=== PATIENT | male | born 1960 | race African-American/Black ===

== ENCOUNTER 2023-09-15 11:09 | Emergency (ER) | payer OTHER ==
[2023-09-15 11:19] VITALS: BP 161/107; PULSE 87; RESP 18; TEMP 98; BMI 28.1
== END 2023-09-15 13:00 | disposition home or self-care (01) ==
LOC: JER 11:09
DX: F10.929 Alcohol use, unspecified with intoxication, unspecified (principal); Y90.9 Presence of alcohol in blood, level not specified
CPT/HCPCS: 99282-25

== ENCOUNTER 2023-09-15 15:08 | Inpatient (IN) | payer OTHER ==
[2023-09-15 17:15] VITALS: BMI 29.7
[2023-09-15] MEDS ORDERED: P-EPHED 60MG/TRIPROLIDI 2.5MG TABLET PO PRN (17:42)
[2023-09-15] MEDS ORDERED: IBUPROFEN 600 MG TABLET (FP) PO PRN (17:42)
[2023-09-15] MEDS ORDERED: guaiFENesin 600 MG TABLET.ER (FP) PO PRN (17:42)
[2023-09-15] MEDS ORDERED: BENZONATATE 200 MG CAPSULE PO PRN (17:42)
[2023-09-15] MEDS ORDERED: ONDANSETRON *ODT* 4 MG TABLET SL PRN (17:42)
[2023-09-15] MEDS ORDERED: DICYCLOMINE HCL 10 MG CAPSULE PO PRN (17:42)
[2023-09-15] MEDS ORDERED: POLYETHYLENE GLYCOL (HEALTHYLAX) 3350 17 GM PACKET PO PRN (17:42)
[2023-09-15] MEDS ORDERED: IBUPROFEN 400 MG TABLET (FP) PO PRN (17:42)
[2023-09-15] MEDS ORDERED: MAG HYDROX/AL HYDROX/SIMETH 30 ML UNIT-DOSE CUP PO PRN (17:42)
[2023-09-15] MEDS ORDERED: LOPERAMIDE HCL 2 MG CAPSULE PO PRN (17:42)
[2023-09-15] MEDS ORDERED: BENZOCAINE/MENTHOL (CHLORASEPTIC ) LOZENGE MM PRN (17:42)
[2023-09-15] MEDS ORDERED: MAGNESIUM HYDROX 2400MG/30ML ORAL SUSPENSION 30 ML CUP PO PRN (17:42)
[2023-09-15] MEDS ORDERED: BISMUTH SUBSALICYLATE 524 MG/30 ML PO PRN (17:42)
[2023-09-15] MEDS ORDERED: ACETAMINOPHEN 325 MG TABLET (FP) PO PRN (17:42)
[2023-09-15] MEDS ORDERED: cloNIDine HCL 0.1 MG TABLET PO PRN (19:04)
[2023-09-15] MEDS ORDERED: cloNIDine HCL 0.1 MG TABLET ONE (19:22)
[2023-09-15] MEDS: MELATONIN 5 MG TABLETS PO SCH (22:22)
[2023-09-15] MEDS: THIAMINE HCL 100 MG TABLET (FP) PO SCH (22:22)
[2023-09-15] MEDS: hydrOXYzine PAMOATE 25 MG CAPSULE (FP) PO PRN (22:22)
[2023-09-16] MEDS: PRENATAL VITAMINS W/ FOLIC ACID TABLET (FP) PO SCH (10:25)
[2023-09-16] MEDS: hydrOXYzine PAMOATE 25 MG CAPSULE (FP) PO PRN ×2 (10:28→22:17)
[2023-09-16 12:28] LABS: HEMATOCRIT 41.6 % (35.4-49); HEMOGLOBIN 13.6 GM/dL (11.7-16.9); MCH 31.3 pg (25.7-33.7); MCHC 32.7 g/dl (32.0-35.9); MEAN CELL VOLUME 95.9 fl (80-96); MEAN PLT VOLUME 9.2 fl (7.5-11.1); PLATELET COUNT 163 10^3/uL (134-434); RBC 4.34 M/mm3 (4.00-5.60); RDW 14.8 % (11.9-15.9); WHITE BLOOD COUNT 3.2 K/mm3 (4.0-10.0)
[2023-09-16 12:33] LABS: CHLORIDE 101 mmol/L (98-107); POTASSIUM 3.9 mmol/L (3.5-5.1); SODIUM 137 mmol/L (136-145)
[2023-09-16 12:36] LABS: CALCIUM 8.1 mg/dL (8.5-10.1)
[2023-09-16 12:37] LABS: ANION GAP 8 mmol/L (4-13); BLOOD UREA NITROGEN 16.2 mg/dL (7-18); CO2 28 mmol/L (21-32); GLUCOSE,RANDOM 90 mg/dL (74-106)
[2023-09-16 12:40] LABS: CREATININE 0.8 mg/dL (0.55-1.3); SGOT/AST 42 U/L (15-37); SGPT/ALT 26 U/L (13-61)
[2023-09-16 12:41] LABS: BILIRUBIN,TOTAL 2.2 mg/dL (0.2-1); TOT PROT 6.1 g/dl (6.4-8.2)
[2023-09-16 12:42] LABS: ALK PHOS 84 U/L (45-117)
[2023-09-16] MEDS: MELATONIN 5 MG TABLETS PO SCH (22:17)
[2023-09-16] MEDS: THIAMINE HCL 100 MG TABLET (FP) PO SCH (22:17)
[2023-09-17 06:03] VITALS: RESP 16
[2023-09-17 09:06] VITALS: BP 142/84; PULSE 80; TEMP 98.2
[2023-09-17] MEDS ORDERED: amLODIPine BESYLATE 2.5 MG TABLET (FP) PO SCH (10:15)
[2023-09-17] MEDS: hydrOXYzine PAMOATE 25 MG CAPSULE (FP) PO PRN (10:21)
[2023-09-17] MEDS: PRENATAL VITAMINS W/ FOLIC ACID TABLET (FP) PO SCH (10:21)
== END 2023-09-17 11:35 | disposition home or self-care (01) | DRG 775 ==
LOC: YASAS 15:08 → Y6N 18:56
PROVIDERS: ADMIT Allergy & Immunology; ATTEND Surgery
PROC: HZ2ZZZZ Detoxification Services for Substance Abuse Treatment (ICD-10-PCS; principal; 2023-09-15)
DX: F10.20 Alcohol dependence, uncomplicated (principal); I10 Essential (primary) hypertension; E80.6 Other disorders of bilirubin metabolism; Z86.19 Personal history of other infectious and parasitic diseases; Z28.310 Unvaccinated for COVID-19; Z28.9 Immunization not carried out for unspecified reason
CPT/HCPCS: 36415; 80053; 80307; 85027; 86593; 86780; 87635

== ENCOUNTER 2023-12-06 15:33 | Inpatient (IN) | payer OTHER ==
[2023-12-06 18:01] VITALS: BMI 30.5
[2023-12-06] MEDS ORDERED: guaiFENesin 600 MG TABLET.ER (FP) PO PRN (20:21)
[2023-12-06] MEDS ORDERED: ACETAMINOPHEN 325 MG TABLET (FP) PO PRN (20:21)
[2023-12-06] MEDS ORDERED: DICYCLOMINE HCL 10 MG CAPSULE PO PRN (20:21)
[2023-12-06] MEDS ORDERED: MAGNESIUM HYDROX 2400MG/30ML ORAL SUSPENSION 30 ML CUP PO PRN (20:21)
[2023-12-06] MEDS ORDERED: BISMUTH SUBSALICYLATE 524 MG/30 ML PO PRN (20:21)
[2023-12-06] MEDS ORDERED: ONDANSETRON *ODT* 4 MG TABLET SL PRN (20:21)
[2023-12-06] MEDS ORDERED: NALOXONE HCL (KLOXXADO) 8 MG SPRAY NS PRN (20:21)
[2023-12-06] MEDS ORDERED: BENZOCAINE/MENTHOL (CHLORASEPTIC ) LOZENGE MM PRN (20:21)
[2023-12-06] MEDS ORDERED: POLYETHYLENE GLYCOL (HEALTHYLAX) 3350 17 GM PACKET PO PRN (20:21)
[2023-12-06] MEDS ORDERED: BENZONATATE 200 MG CAPSULE PO PRN (20:21)
[2023-12-06] MEDS ORDERED: MAG HYDROX/AL HYDROX/SIMETH 30 ML UNIT-DOSE CUP PO PRN (20:21)
[2023-12-06] MEDS ORDERED: LOPERAMIDE HCL 2 MG CAPSULE PO PRN (20:21)
[2023-12-06] MEDS ORDERED: IBUPROFEN 600 MG TABLET (FP) PO PRN (20:21)
[2023-12-06] MEDS ORDERED: IBUPROFEN 400 MG TABLET (FP) PO PRN (20:21)
[2023-12-06] MEDS ORDERED: NALOXONE HCL 0.4 MG/ML VIAL IM PRN (20:21)
[2023-12-06] MEDS ORDERED: amLODIPine BESYLATE 5 MG TABLET (FP) PO ONE (20:23)
[2023-12-06] MEDS ORDERED: hydrOXYzine PAMOATE 25 MG CAPSULE (FP) PO ONE (20:32)
[2023-12-06] MEDS ORDERED: amLODIPine BESYLATE 5 MG TABLET (FP) ONE (20:32)
[2023-12-06] MEDS: hydrOXYzine PAMOATE 25 MG CAPSULE (FP) PO PRN (20:35)
[2023-12-06] MEDS ORDERED: MELATONIN 5 MG TABLETS PO SCH (22:00)
[2023-12-06] MEDS: THIAMINE HCL 100 MG TABLET (FP) PO SCH (22:16)
[2023-12-07] MEDS: PRENATAL VITAMINS W/ FOLIC ACID TABLET (FP) PO SCH (09:37)
[2023-12-07] MEDS ORDERED: amLODIPine BESYLATE 5 MG TABLET (FP) PO SCH (10:00)
[2023-12-07 11:48] LABS: HEMATOCRIT 40.2 % (35.4-49); HEMOGLOBIN 13.5 GM/dL (11.7-16.9); MCHC 33.5 g/dl (32.0-35.9); MEAN CELL VOLUME 86.6 fl (80-96); MEAN PLT VOLUME 8.9 fl (7.5-11.1); PLATELET COUNT 190 10^3/uL (134-434); RBC 4.65 M/mm3 (4.00-5.60); WHITE BLOOD COUNT 3.6 K/mm3 (4.0-10.0)
[2023-12-07 11:51] LABS: URINE APPEARANCE CLEAR; URINE BILIRUBIN 1+ (NEGATIVE); URINE COLOR DK YELLOW; URINE GLUCOSE (UA) NEGATIVE (NEGATIVE); URINE KETONE TRACE (NEGATIVE); URINE LEUK ESTERASE NEGATIVE (NEGATIVE); URINE NITRITE NEGATIVE (NEGATIVE); URINE PROTEIN NEGATIVE (NEGATIVE)
[2023-12-07 12:24] LABS: CHLORIDE 102 mmol/L (98-107); POTASSIUM 4.1 mmol/L (3.5-5.1); SODIUM 139 mmol/L (136-145)
[2023-12-07 12:38] LABS: CREATININE 0.9 mg/dL (0.55-1.3)
[2023-12-07 12:39] LABS: ALBUMIN 3.1 g/dl (3.4-5.0); ANION GAP 8 mmol/L (4-13); CALCIUM 8.7 mg/dL (8.5-10.1); CO2 29 mmol/L (21-32); GLUCOSE,RANDOM 100 mg/dL (74-106); SGOT/AST 23 U/L (15-37)
[2023-12-07 12:40] LABS: BILIRUBIN,TOTAL 3.1 mg/dL (0.2-1); BLOOD UREA NITROGEN 13.5 mg/dL (7-18); TOT PROT 6.5 g/dl (6.4-8.2)
[2023-12-07 12:41] LABS: ALK PHOS 102 U/L (45-117)
[2023-12-07 12:42] LABS: SGPT/ALT 29 U/L (13-61)
[2023-12-07] MEDS: diazePAM 5 MG TABLET PO SCH ×2 (17:57→22:20)
[2023-12-07] MEDS: hydrOXYzine PAMOATE 25 MG CAPSULE (FP) PO PRN (17:58)
[2023-12-07] MEDS: MELATONIN 5 MG TABLETS PO SCH (22:19)
[2023-12-07] MEDS: THIAMINE HCL 100 MG TABLET (FP) PO SCH (22:20)
[2023-12-08] MEDS: diazePAM 5 MG TABLET PO SCH ×3 (05:50→22:12)
[2023-12-08] MEDS: PRENATAL VITAMINS W/ FOLIC ACID TABLET (FP) PO SCH (09:43)
[2023-12-08] MEDS: amLODIPine BESYLATE 5 MG TABLET (FP) PO SCH (09:44)
[2023-12-08] MEDS: hydrOXYzine PAMOATE 25 MG CAPSULE (FP) PO PRN (17:33)
[2023-12-08] MEDS: THIAMINE HCL 100 MG TABLET (FP) PO SCH (22:12)
[2023-12-08] MEDS: MELATONIN 5 MG TABLETS PO SCH (22:12)
[2023-12-09] MEDS: diazePAM 5 MG TABLET PO SCH ×2 (06:02→17:26)
[2023-12-09] MEDS: amLODIPine BESYLATE 5 MG TABLET (FP) PO SCH (10:22)
[2023-12-09] MEDS: PRENATAL VITAMINS W/ FOLIC ACID TABLET (FP) PO SCH (10:22)
[2023-12-09 21:24] VITALS: RESP 18
[2023-12-09] MEDS: MELATONIN 5 MG TABLETS PO SCH (22:33)
[2023-12-09] MEDS: THIAMINE HCL 100 MG TABLET (FP) PO SCH (22:34)
[2023-12-09] MEDS: hydrOXYzine PAMOATE 25 MG CAPSULE (FP) PO PRN (22:34)
[2023-12-10] MEDS ORDERED: diazePAM 5 MG TABLET PO ONE (06:00)
[2023-12-10 09:34] VITALS: BP 127/69; PULSE 89; TEMP 97.1
[2023-12-10] MEDS: PRENATAL VITAMINS W/ FOLIC ACID TABLET (FP) PO SCH (10:16)
[2023-12-10] MEDS: amLODIPine BESYLATE 5 MG TABLET (FP) PO SCH (10:17)
[2023-12-10] MEDS: hydrOXYzine PAMOATE 25 MG CAPSULE (FP) PO PRN (10:18)
== END 2023-12-10 11:40 | disposition home or self-care (01) | DRG 775 ==
LOC: YASAS 15:33 → Y6N 20:44
PROVIDERS: ADMIT Allergy & Immunology; ATTEND Surgery
PROC: HZ2ZZZZ Detoxification Services for Substance Abuse Treatment (ICD-10-PCS; principal; 2023-12-06)
DX: F10.230 Alcohol dependence with withdrawal, uncomplicated (principal); F10.280 Alcohol dependence with alcohol-induced anxiety disorder; F10.282 Alcohol dependence with alcohol-induced sleep disorder; I10 Essential (primary) hypertension; G47.33 Obstructive sleep apnea (adult) (pediatric); R94.31 Abnormal electrocardiogram [ECG] [EKG]; Z86.19 Personal history of other infectious and parasitic diseases
CPT/HCPCS: 36415; 80053; 80307; 81003; 82247; 85027; 86593; 86780; 87635; 87811; 93005; 93010

== ENCOUNTER 2023-12-12 16:24 | Inpatient (IN) | payer OTHER ==
[2023-12-12 17:59] VITALS: BMI 31.0
[2023-12-12] MEDS ORDERED: POLYETHYLENE GLYCOL (HEALTHYLAX) 3350 17 GM PACKET PO PRN (18:08)
[2023-12-12] MEDS ORDERED: NALOXONE HCL (KLOXXADO) 8 MG SPRAY NS PRN (18:08)
[2023-12-12] MEDS ORDERED: NALOXONE HCL 0.4 MG/ML VIAL IM PRN (18:08)
[2023-12-12] MEDS ORDERED: LOPERAMIDE HCL 2 MG CAPSULE PO PRN (18:08)
[2023-12-12] MEDS ORDERED: BENZONATATE 200 MG CAPSULE PO PRN (18:08)
[2023-12-12] MEDS ORDERED: BENZOCAINE/MENTHOL (CHLORASEPTIC ) LOZENGE MM PRN (18:08)
[2023-12-12] MEDS ORDERED: ACETAMINOPHEN 325 MG TABLET (FP) PO PRN (18:08)
[2023-12-12] MEDS ORDERED: guaiFENesin 600 MG TABLET.ER (FP) PO PRN (18:08)
[2023-12-12] MEDS ORDERED: MAGNESIUM HYDROX 2400MG/30ML ORAL SUSPENSION 30 ML CUP PO PRN (18:08)
[2023-12-12] MEDS ORDERED: IBUPROFEN 400 MG TABLET (FP) PO PRN (18:08)
[2023-12-12] MEDS: MELATONIN 5 MG TABLETS PO SCH (21:30)
[2023-12-12] MEDS: THIAMINE HCL 100 MG TABLET (FP) PO SCH (21:30)
[2023-12-13] MEDS: PRENATAL VITAMINS W/ FOLIC ACID TABLET (FP) PO SCH (10:02)
[2023-12-13] MEDS: hydrOXYzine PAMOATE 25 MG CAPSULE (FP) PO PRN (10:02)
[2023-12-13 11:42] LABS: CHLORIDE 104 mmol/L (98-107); POTASSIUM 4.1 mmol/L (3.5-5.1); SODIUM 139 mmol/L (136-145)
[2023-12-13 11:48] LABS: ANION GAP 5 mmol/L (4-13); BLOOD UREA NITROGEN 18.6 mg/dL (7-18); CALCIUM 8.4 mg/dL (8.5-10.1); CO2 30 mmol/L (21-32); GLUCOSE,RANDOM 146 mg/dL (74-106)
[2023-12-13 11:50] LABS: SGOT/AST 18 U/L (15-37); SGPT/ALT 21 U/L (13-61)
[2023-12-13 11:51] LABS: TOT PROT 6.4 g/dl (6.4-8.2)
[2023-12-13 11:52] LABS: ALK PHOS 88 U/L (45-117); BILIRUBIN,TOTAL 0.9 mg/dL (0.2-1)
[2023-12-13] MEDS: amLODIPine BESYLATE 10 MG TABLET (FP) PO SCH (12:18)
[2023-12-13 12:39] LABS: HEMATOCRIT 40.5 % (35.4-49); HEMOGLOBIN 13.5 GM/dL (11.7-16.9); MCH 29.4 pg (25.7-33.7); MCHC 33.3 g/dl (32.0-35.9); MEAN CELL VOLUME 88.4 fl (80-96); MEAN PLT VOLUME 8.6 fl (7.5-11.1); PLATELET COUNT 208 10^3/uL (134-434); RBC 4.58 M/mm3 (4.00-5.60); RDW 15.6 % (11.9-15.9); WHITE BLOOD COUNT 4.3 K/mm3 (4.0-10.0)
[2023-12-13 18:32] LABS: EPI CELLS 4 /uL (0-25.1); HYALINE CASTS 0 /uL (0-3.1); PH,URINE 6.5 (5.0-8.0); URINE APPEARANCE CLEAR; URINE BACTERIA 5 /uL (0-1359); URINE BILIRUBIN NEGATIVE (NEGATIVE); URINE COLOR YELLOW; URINE GLUCOSE (UA) NEGATIVE (NEGATIVE); URINE KETONE NEGATIVE (NEGATIVE); URINE LEUK ESTERASE NEGATIVE (NEGATIVE); URINE NITRITE NEGATIVE (NEGATIVE); URINE PROTEIN NEGATIVE (NEGATIVE); URINE RBC 14 /uL (0-23.9); URINE WBC 1 /uL (0-25.8)
[2023-12-13] MEDS: SUVOREXANT 10 MG TABLET PO PRN (21:06)
[2023-12-17] MEDS: SUVOREXANT 10 MG TABLET PO PRN (21:13)
[2023-12-18] MEDS: MAG HYDROX/AL HYDROX/SIMETH 30 ML UNIT-DOSE CUP PO PRN (19:48)
[2023-12-19] MEDS: SUVOREXANT 10 MG TABLET PO PRN (21:16)
[2023-12-20] MEDS: CLINDAMYCIN PHOSPHATE 1% TOPICAL GEL 30 GM TUBE TP SCH (14:27)
[2023-12-20] MEDS: NALTREXONE HCL 50 MG TABLET PO ONE (14:28)
[2023-12-21] MEDS: FLU VACCINE (FLULAVAL) PF 60 MCG/0.5 ML SYRINGE 2023-2024 IM ONE (10:31)
[2023-12-21] MEDS: NALTREXONE HCL 50 MG TABLET PO SCH (10:54)
[2023-12-21] MEDS: IBUPROFEN 600 MG TABLET (FP) PO PRN (16:49)
[2023-12-22] MEDS: AMOX TR/POT CLAV 500MG/125MG TABLETS (FP) PO SCH (12:30)
[2023-12-22] MEDS: SUVOREXANT 10 MG TABLET PO PRN (21:14)
[2023-12-25] MEDS: SUVOREXANT 10 MG TABLET PO PRN (21:10)
[2023-12-28] MEDS: SUVOREXANT 10 MG TABLET PO PRN (21:25)
[2024-01-01] MEDS: SUVOREXANT 10 MG TABLET PO PRN (21:46)
[2024-01-03] MEDS: SUVOREXANT 10 MG TABLET PO PRN (21:03)
[2024-01-07] MEDS: SUVOREXANT 10 MG TABLET PO ONE ×2 (21:10→22:15)
[2024-01-08 09:42] VITALS: RESP 18
[2024-01-08] MEDS: SUVOREXANT 10 MG TABLET PO PRN (21:05)
[2024-01-09 09:32] VITALS: BP 113/73; PULSE 77; TEMP 97.7
[2024-01-09] MEDS: NALTREXONE MICROSPHERES (VIVITROL) 380 MG DISP.SYRIN IM ONE (09:35)
== END 2024-01-09 10:44 | disposition home or self-care (01) | DRG 772 ==
LOC: YASAS 16:24 → Y3W 20:11
PROVIDERS: ADMIT Allergy & Immunology; ATTEND Psychiatry & Neurology Pain Medicine
PROC: HZ42ZZZ Group Counseling for Substance Abuse Treatment, Cognitive-Behavioral (ICD-10-PCS; principal; 2023-12-12)
DX: F10.20 Alcohol dependence, uncomplicated (principal); I10 Essential (primary) hypertension; G47.00 Insomnia, unspecified; L02.02 Furuncle of face; Z86.19 Personal history of other infectious and parasitic diseases
CPT/HCPCS: 36415; 80053; 80307; 81003; 82962; 85027; 86780; 87635; 90686; G0008; J2315

== ENCOUNTER 2024-05-11 12:34 | Inpatient (IN) | payer OTHER ==
[2024-05-11 13:14] VITALS: BMI 31.3
[2024-05-11] MEDS ORDERED: MAGNESIUM HYDROX 2400MG/30ML ORAL SUSPENSION 30 ML CUP PO PRN (14:56)
[2024-05-11] MEDS ORDERED: IBUPROFEN 400 MG TABLET (FP) PO PRN (14:56)
[2024-05-11] MEDS ORDERED: NALOXONE HCL 0.4 MG/ML VIAL IM PRN (14:56)
[2024-05-11] MEDS ORDERED: IBUPROFEN 600 MG TABLET (FP) PO PRN (14:56)
[2024-05-11] MEDS ORDERED: BENZONATATE 200 MG CAPSULE PO PRN (14:56)
[2024-05-11] MEDS ORDERED: LOPERAMIDE HCL 2 MG CAPSULE PO PRN (14:56)
[2024-05-11] MEDS ORDERED: NALOXONE (NARCAN) HCL 4 MG/0.1 ML SPRAY NS PRN (14:56)
[2024-05-11] MEDS ORDERED: MAG HYDROX/AL HYDROX/SIMETH 30 ML UNIT-DOSE CUP PO PRN (14:56)
[2024-05-11] MEDS ORDERED: hydrOXYzine PAMOATE 25 MG CAPSULE (FP) PO PRN (14:56)
[2024-05-11] MEDS ORDERED: guaiFENesin 600 MG TABLET.ER (FP) PO PRN (14:56)
[2024-05-11] MEDS ORDERED: BENZOCAINE/MENTHOL (CHLORASEPTIC ) LOZENGE MM PRN (14:56)
[2024-05-11] MEDS: MELATONIN 5 MG TABLETS PO SCH (21:49)
[2024-05-11] MEDS: THIAMINE 100 MG TABLET PO SCH (21:49)
[2024-05-12] MEDS: PRENATAL VITAMINS W/ FOLIC ACID TABLET (FP) PO SCH (10:45)
[2024-05-12 12:06] LABS: HEMATOCRIT 43.2 % (35.4-49); HEMOGLOBIN 14.3 GM/dL (11.7-16.9); MCH 29.3 pg (25.7-33.7); MCHC 33.2 g/dl (32.0-35.9); MEAN CELL VOLUME 88.3 fl (80-96); MEAN PLT VOLUME 9.3 fl (7.5-11.1); PLATELET COUNT 169 10^3/uL (134-434); RBC 4.89 M/mm3 (4.00-5.60); RDW 14.7 % (11.9-15.9); WHITE BLOOD COUNT 4.1 K/mm3 (4.0-10.0)
[2024-05-12 12:09] LABS: CHLORIDE 102 mmol/L (98-107); POTASSIUM 3.6 mmol/L (3.5-5.1); SODIUM 137 mmol/L (136-145)
[2024-05-12 12:13] LABS: ANION GAP 7 mmol/L (4-13); BLOOD UREA NITROGEN 14.5 mg/dL (7-18); CO2 29 mmol/L (21-32)
[2024-05-12 12:14] LABS: ALBUMIN 3.4 g/dl (3.4-5.0); GLUCOSE,RANDOM 146 mg/dL (74-106)
[2024-05-12 12:16] LABS: SGPT/ALT 57 U/L (13-61)
[2024-05-12 12:17] LABS: SGOT/AST 54 U/L (15-37)
[2024-05-12 12:18] LABS: BILIRUBIN,TOTAL 2.2 mg/dL (0.2-1); TOT PROT 6.8 g/dl (6.4-8.2)
[2024-05-12 12:19] LABS: ALK PHOS 118 U/L (45-117)
[2024-05-12] MEDS: MELATONIN 5 MG TABLETS PO SCH (21:27)
[2024-05-13 15:24] LABS: SYPHILIS W/ RPR CONF NON-REACTIVE (NONREACTIVE)
[2024-05-13] MEDS: ACETAMINOPHEN 325 MG TABLET (FP) PO PRN (22:35)
[2024-05-14 12:20] LABS: URINE APPEARANCE CLEAR; URINE BILIRUBIN NEGATIVE (NEGATIVE); URINE COLOR YELLOW; URINE GLUCOSE (UA) NEGATIVE (NEGATIVE); URINE KETONE NEGATIVE (NEGATIVE); URINE LEUK ESTERASE NEGATIVE (NEGATIVE); URINE NITRITE NEGATIVE (NEGATIVE); URINE PROTEIN NEGATIVE (NEGATIVE)
[2024-05-21] MEDS: NALTREXONE HCL 50 MG TABLET PO SCH (13:00)
[2024-05-22 13:46] LABS: INR 1.03 (0.83-1.09); PROTHROMBIN TIME (PATIENT) 11.6 SEC (9.7-13.0)
[2024-05-22] MEDS: CHOLECALCIFEROL (VIT D3) 400 UNIT (10 MCG) TABLET PO SCH (16:16)
[2024-05-23] MEDS: LACTULOSE 20 GM/30 ML UDC (FOR ORAL USE ONLY) PO SCH (21:21)
[2024-05-24] MEDS: NALTREXONE HCL 50 MG TABLET PO SCH (10:04)
[2024-05-30] MEDS: SUVOREXANT 10 MG TABLET PO SCH (21:21)
[2024-06-02] MEDS: NALTREXONE MICROSPHERES (VIVITROL) 380 MG DISP.SYRIN IM ONE (14:24)
[2024-06-05] MEDS: POLYETHYLENE GLYCOL (HEALTHYLAX) 3350 17 GM PACKET PO PRN (10:06)
[2024-06-06 06:34] VITALS: TEMP 97.5
[2024-06-06] MEDS: SUVOREXANT 15 MG TABLET PO SCH (21:14)
[2024-06-07 06:23] VITALS: BP 142/81; PULSE 70; RESP 18
== END 2024-06-07 10:41 | disposition home or self-care (01) | DRG 772 ==
LOC: YASAS 12:34 → Y3NR 16:18 → Y3W 05-13 13:31
PROVIDERS: ADMIT Allergy & Immunology; ATTEND Psychiatry & Neurology Pain Medicine
PROC: HZ42ZZZ Group Counseling for Substance Abuse Treatment, Cognitive-Behavioral (ICD-10-PCS; principal; 2024-05-11)
DX: F10.20 Alcohol dependence, uncomplicated (principal); F10.282 Alcohol dependence with alcohol-induced sleep disorder; E72.20 Disorder of urea cycle metabolism, unspecified; G47.00 Insomnia, unspecified; I10 Essential (primary) hypertension; Z86.19 Personal history of other infectious and parasitic diseases
CPT/HCPCS: 36415; 80053; 80305; 80307; 81003; 82140; 82306; 83735; 85027; 85610; 86780; 86803; 87811; 93005; 93010; J2315

== ENCOUNTER 2024-12-18 17:18 | Inpatient (IN) | payer OTHER ==
[2024-12-18 17:59] VITALS: BMI 34.2
[2024-12-18] MEDS ORDERED: MAG HYDROX/AL HYDROX/SIMETH 30 ML UNIT-DOSE CUP PO PRN (18:15)
[2024-12-18] MEDS ORDERED: BENZOCAINE/MENTHOL (CHLORASEPTIC ) LOZENGE MM PRN (18:15)
[2024-12-18] MEDS ORDERED: IBUPROFEN 400 MG TABLET (FP) PO PRN (18:15)
[2024-12-18] MEDS ORDERED: NALOXONE (NARCAN) HCL 4 MG/0.1 ML SPRAY NS PRN (18:15)
[2024-12-18] MEDS ORDERED: guaiFENesin 600 MG TABLET.ER (FP) PO PRN (18:15)
[2024-12-18] MEDS ORDERED: LOPERAMIDE HCL 2 MG CAPSULE PO PRN (18:15)
[2024-12-18] MEDS ORDERED: BENZONATATE 200 MG CAPSULE PO PRN (18:15)
[2024-12-18] MEDS ORDERED: POLYETHYLENE GLYCOL (HEALTHYLAX) 3350 17 GM PACKET PO PRN (18:15)
[2024-12-18] MEDS ORDERED: MAGNESIUM HYDROX 2400MG/30ML ORAL SUSPENSION 30 ML CUP PO PRN (18:15)
[2024-12-18] MEDS ORDERED: MELATONIN 5 MG TABLETS ONE (22:47)
[2024-12-18] MEDS: MELATONIN 5 MG TABLETS PO SCH (22:48)
[2024-12-18] MEDS: THIAMINE 100 MG TABLET PO SCH (22:48)
[2024-12-19] MEDS: hydrOXYzine PAMOATE 25 MG CAPSULE (FP) PO PRN (02:02)
[2024-12-19 09:16] LABS: HEMATOCRIT 42.6 % (35.4-49); HEMOGLOBIN 14.2 GM/dL (11.7-16.9); MCH 29.5 pg (25.7-33.7); MCHC 33.3 g/dl (32.0-35.9); MEAN CELL VOLUME 88.6 fl (80-96); MEAN PLT VOLUME 9.3 fl (7.5-11.1); PLATELET COUNT 241 10^3/uL (134-434); RBC 4.81 M/mm3 (4.00-5.60); RDW 15.6 % (11.9-15.9); WHITE BLOOD COUNT 4.7 K/mm3 (4.0-10.0)
[2024-12-19 09:20] LABS: CHLORIDE 104 mmol/L (98-107); POTASSIUM 3.9 mmol/L (3.5-5.1); SODIUM 138 mmol/L (136-145)
[2024-12-19 09:49] LABS: ALBUMIN 3.6 g/dl (3.4-5.0); ANION GAP 10 mmol/L (4-13); BLOOD UREA NITROGEN 16.9 mg/dL (7-18); CO2 25 mmol/L (21-32); GLUCOSE,RANDOM 90 mg/dL (74-106)
[2024-12-19 09:53] LABS: SGOT/AST 23 U/L (15-37); SGPT/ALT 22 U/L (13-61)
[2024-12-19 09:54] LABS: ALK PHOS 79 U/L (45-117); BILIRUBIN,TOTAL 1.6 mg/dL (0.2-1); TOT PROT 7.2 g/dl (6.4-8.2)
[2024-12-19] MEDS: PRENATAL VITAMINS W/ FOLIC ACID TABLET (FP) PO SCH (11:00)
[2024-12-19] MEDS: amLODIPine BESYLATE 10 MG TABLET (FP) PO SCH (11:00)
[2024-12-19] MEDS: FLU VACCINE (FLULAVAL) PF 45 MCG/0.5 ML SYRINGE 2024-2025 IM ONE (16:53)
[2024-12-19 17:42] LABS: PH,URINE 5.5 (5.0-8.0); URINE APPEARANCE TURBID; URINE BILIRUBIN NEGATIVE (NEGATIVE); URINE COLOR YELLOW; URINE GLUCOSE (UA) NEGATIVE (NEGATIVE); URINE KETONE NEGATIVE (NEGATIVE); URINE LEUK ESTERASE NEGATIVE (NEGATIVE); URINE NITRITE NEGATIVE (NEGATIVE); URINE PROTEIN NEGATIVE (NEGATIVE)
[2024-12-19] MEDS: MELATONIN 5 MG TABLETS PO SCH (21:27)
[2024-12-20] MEDS: NALTREXONE HCL 50 MG TABLET PO ONE (14:54)
[2024-12-21] MEDS: NALTREXONE HCL 50 MG TABLET PO SCH (09:55)
[2024-12-25] MEDS: ACETAMINOPHEN 325 MG TABLET (FP) PO PRN (05:34)
[2024-12-25] MEDS: IBUPROFEN 600 MG TABLET (FP) PO PRN (10:19)
[2024-12-25] MEDS: SUVOREXANT 10 MG TABLET PO PRN (21:26)
[2024-12-26] MEDS: HYDROCORTISONE 0.5% TOPICAL CREAM 30 GM TUBE TP PRN (09:44)
[2024-12-27] MEDS: SUVOREXANT 10 MG TABLET PO PRN (21:26)
[2024-12-29] MEDS: SUVOREXANT 10 MG TABLET PO PRN (21:40)
[2024-12-31] MEDS: NALTREXONE MICROSPHERES (VIVITROL) 380 MG DISP.SYRIN IM ONE (06:19)
[2024-12-31] MEDS ORDERED: SUVOREXANT 10 MG TABLET PO PRN (22:00)
[2025-01-04] MEDS: SUVOREXANT 10 MG TABLET PO PRN (21:08)
[2025-01-05] MEDS: SUVOREXANT 10 MG TABLET PO PRN (22:26)
[2025-01-08] MEDS: SUVOREXANT 10 MG TABLET PO PRN (21:09)
[2025-01-09] MEDS ORDERED: NALTREXONE HCL 50 MG TABLET PO ONE (18:00)
[2025-01-09] MEDS: SUVOREXANT 10 MG TABLET PO PRN (21:18)
[2025-01-10 06:30] VITALS: RESP 16
[2025-01-10] MEDS ORDERED: NALTREXONE HCL 50 MG TABLET PO SCH (10:00)
[2025-01-13] MEDS: SUVOREXANT 10 MG TABLET PO PRN (21:00)
[2025-01-15] MEDS ORDERED: NALTREXONE MICROSPHERES (VIVITROL) 380 MG DISP.SYRIN IM ONE (10:00)
[2025-01-15] MEDS: SUVOREXANT 10 MG TABLET PO PRN (21:17)
[2025-01-16 05:13] VITALS: TEMP 97.7
[2025-01-16 09:23] VITALS: BP 105/70; PULSE 98
== END 2025-01-16 09:56 | disposition home or self-care (01) | DRG 772 ==
LOC: YASAS 17:18 → Y3NR 22:22 → Y3W 12-19 09:43
PROVIDERS: ADMIT Psychiatry & Neurology Pain Medicine; ATTEND Psychiatry & Neurology Pain Medicine
PROC: HZ42ZZZ Group Counseling for Substance Abuse Treatment, Cognitive-Behavioral (ICD-10-PCS; principal; 2024-12-18)
DX: F10.20 Alcohol dependence, uncomplicated (principal); F10.282 Alcohol dependence with alcohol-induced sleep disorder; F32.A Depression, unspecified; F41.9 Anxiety disorder, unspecified; G47.00 Insomnia, unspecified; I10 Essential (primary) hypertension; Z86.69 Personal history of other diseases of the nervous system and sense organs; Z86.19 Personal history of other infectious and parasitic diseases
CPT/HCPCS: 36415; 80053; 80305; 80307; 81003; 85027; 86780; 87811; 90656; G0008; J2315

== ENCOUNTER 2025-08-15 10:23 | Inpatient (IN) | payer OTHER ==
[2025-08-15 10:44] VITALS: BMI 34.5
[2025-08-15] MEDS ORDERED: ONDANSETRON *ODT* 4 MG TABLET SL PRN (11:13)
[2025-08-15] MEDS ORDERED: ACETAMINOPHEN 325 MG TABLET (FP) PO PRN (11:13)
[2025-08-15] MEDS ORDERED: DICYCLOMINE HCL 10 MG CAPSULE PO PRN (11:13)
[2025-08-15] MEDS ORDERED: BISMUTH SUBSALICYLATE 524 MG/30 ML PO PRN (11:13)
[2025-08-15] MEDS ORDERED: BENZONATATE 200 MG CAPSULE PO PRN (11:13)
[2025-08-15] MEDS ORDERED: guaiFENesin 600 MG TABLET.ER (FP) PO PRN (11:13)
[2025-08-15] MEDS ORDERED: POLYETHYLENE GLYCOL (HEALTHYLAX) 3350 17 GM PACKET PO PRN ×2 (11:13→11:16)
[2025-08-15] MEDS ORDERED: IBUPROFEN 600 MG TABLET (FP) PO PRN (11:13)
[2025-08-15] MEDS ORDERED: LOPERAMIDE HCL 2 MG CAPSULE PO PRN (11:13)
[2025-08-15] MEDS ORDERED: NALOXONE (NARCAN) HCL 4 MG/0.1 ML SPRAY NS PRN (11:13)
[2025-08-15] MEDS ORDERED: BENZOCAINE/MENTHOL (CHLORASEPTIC ) LOZENGE MM PRN (11:13)
[2025-08-15] MEDS ORDERED: MAGNESIUM HYDROX 2400MG/30ML ORAL SUSPENSION 30 ML CUP PO PRN (11:13)
[2025-08-15] MEDS ORDERED: MAG HYDROX/AL HYDROX/SIMETH 30 ML UNIT-DOSE CUP PO PRN (11:13)
[2025-08-15] MEDS ORDERED: IBUPROFEN 400 MG TABLET (FP) PO PRN (11:13)
[2025-08-15] MEDS: PRENATAL VITAMINS W/ FOLIC ACID TABLET (FP) PO SCH (12:10)
[2025-08-15] MEDS: hydrOXYzine PAMOATE 25 MG CAPSULE (FP) PO PRN (12:29)
[2025-08-15] MEDS: MELATONIN 5 MG TABLETS PO SCH (22:12)
[2025-08-15] MEDS: LACTULOSE 20 GM/30 ML UDC (FOR ORAL USE ONLY) PO SCH (22:12)
[2025-08-15] MEDS: THIAMINE 100 MG TABLET PO SCH (22:12)
[2025-08-16] MEDS: amLODIPine BESYLATE 10 MG TABLET (FP) PO SCH (10:13)
[2025-08-16] MEDS: NICOTINE 14 MG/24 HOURS TOPICAL PATCH TD SCH (10:13)
[2025-08-16 10:37] LABS: MCHC 35.2 g/dl (32.3-36.5); MEAN CELL VOLUME 80.9 fl (79.0-92.2); MEAN PLT VOLUME 12.1 fl (9.4-12.4); RDW 14.4 % (12.2-16.4)
[2025-08-16 11:02] LABS: GLUCOSE,RANDOM 97.0 mg/dL (74-106); TOT PROT 6.2 g/dl (6.4-8.2)
[2025-08-16 11:03] LABS: CO2 28.0 mmol/L (21-32)
[2025-08-16 11:04] LABS: ALK PHOS 101.0 U/L (40-150)
[2025-08-16 11:07] LABS: SGOT/AST 95.0 U/L (5-34); SGPT/ALT 66.0 U/L (0-55)
[2025-08-16 11:08] LABS: CREATININE 0.98 mg/dL (0.55-1.3)
[2025-08-16] MEDS: SUVOREXANT 10 MG TABLET PO SCH (22:03)
[2025-08-18] MEDS: METHOCARBAMOL 500 MG TABLET PO PRN (23:21)
[2025-08-19 06:14] VITALS: PULSE 90; RESP 16
[2025-08-19 10:29] VITALS: BP 126/86; TEMP 97.1
== END 2025-08-19 10:34 | disposition home or self-care (01) | DRG 775 ==
LOC: YASAS 10:23 → Y3N 11:41
PROVIDERS: ADMIT Allergy & Immunology; ATTEND Student in an Organized Health Care Education/Training Program
PROC: HZ2ZZZZ Detoxification Services for Substance Abuse Treatment (ICD-10-PCS; principal; 2025-08-15)
DX: F10.230 Alcohol dependence with withdrawal, uncomplicated (principal); F17.210 Nicotine dependence, cigarettes, uncomplicated; F10.280 Alcohol dependence with alcohol-induced anxiety disorder; F10.282 Alcohol dependence with alcohol-induced sleep disorder; F41.9 Anxiety disorder, unspecified; F32.A Depression, unspecified; G47.00 Insomnia, unspecified; G47.30 Sleep apnea, unspecified; I10 Essential (primary) hypertension; Z20.2 Contact with and (suspected) exposure to infections with a predominantly sexual mode of transmission
CPT/HCPCS: 36415; 80053; 80305; 80307; 85027; 86780; 93005; 93010